=== PATIENT | male | born 1965 | race Two or more races ===

== ENCOUNTER 2021-03-10 19:34 | Inpatient (IN) | payer OTHER ==
[~2021-03-10] VITALS: Ht 182.9 cm; Wt 92.8 kg
[2021-03-10] MEDS ORDERED: methylPREDNISolone SOD SUCC 125 MG/2 ML VL IV ONE (19:45)
[2021-03-10] MEDS ORDERED: LABETALOL HCL 5 MG/ML 4ML SYRINGE IV ONE (19:45)
[2021-03-10 20:19] LABS: Basophils # (auto) 0 10 ^3/uL (0-0.2); Basophils % (auto) 0.3 % (0.0-2.0); Eosinophils # (auto) 0 10 ^3/uL (0-0.8); Hematocrit 44.1 % (41.0-53.0); Hemoglobin 15.3 g/dL (13.5-17.5); Lymphocytes # (auto) 1.1 10 ^3/uL (0.4-5.4); Lymphocytes % (auto) 9.3 % (10.0-50.0); Mean Corpuscular Hemoglobin 29.6 pg (28.0-32.0); Mean Corpuscular Hgb Conc. 34.6 g/dL (32.0-36.0); Mean Corpuscular Volume 85.4 fL (80.0-100.0); Monocytes # (auto) 0.7 10 ^3/uL (0-1.3); Monocytes % (auto) 5.6 % (0.0-12.0); Neutrophils # (auto) 10.3 10 ^3/uL (1.6-8.6); Neutrophils % (auto) 84.8 % (37.0-80.0); Nucleated Red Blood Cells % 0.1 %; Red Blood Cells 5.16 10^6/uL (4.5-5.90); Red Cell Distribution Width 14.4 % (11.8-14.3); White Blood Cell 12.2 10^3/uL (4.4-10.8)
[2021-03-10 20:40] LABS: Alanine Aminotransferase 26 U/L (16-61); Albumin 4.4 g/dL (3.4-5.0); Anion Gap 13 (5-15); Aspartate Aminotransferase 23 U/L (15-37); Blood Urea Nitrogen 12 mg/dL (7-18); CRP High Sensitivity 0.89 mg/dL (< 0.3); Calcium 9.9 mg/dL (8.5-10.1); Carbon Dioxide 22 mmol/L (21-32); Chloride 99 mmol/L (98-107); Glucose 151 mg/dL (74-106); Magnesium 2.3 mg/dL (1.6-2.6); Potassium 3.4 mmol/L (3.5-5.1); Sodium 134 mmol/L (136-145)
[2021-03-10 20:45] LABS: Alkaline Phosphatase 78 U/L (45-117); BUN/Creatinine Ratio 11.9; Bilirubin, Total 0.7 mg/dL (0.2-1.0); GFR African American 98 mL/min; GFR Non-African American 81 mL/min; Total Protein 9.6 g/dL (6.4-8.2)
[2021-03-10] MEDS ORDERED: cloNIDine HCL 0.1 MG TAB PO PRN (21:45)
[2021-03-10] MEDS ORDERED: MORPHINE SULFATE INJECTION 2 MG/ML SYRG IV PRN (21:45)
[2021-03-10] MEDS ORDERED: ONDANSETRON HCL 4 MG/2 ML VIAL IV PRN (21:45)
[2021-03-10] MEDS ORDERED: ACETAMINOPHEN 325 MG TAB PO PRN (21:45)
[2021-03-10] MEDS ORDERED: NITROGLYCERIN 0.4 MG SL TAB SL PRN (21:45)
[2021-03-10] MEDS ORDERED: ALBUTEROL SULF 2.5 MG/0.5ML(0.5%) NEB SOLN NEB PRN (21:45)
[2021-03-10] MEDS ORDERED: hydrALAZINE HCL 20 MG/ML VL IV ONE (21:45)
[2021-03-10] MEDS ORDERED: TEMAZEPAM 15 MG CAP PO PRN (21:45)
[2021-03-10] MEDS: FAMOTIDINE 20 MG TAB PO SCH (21:58)
[2021-03-10] MEDS ORDERED: IOHEXOL 350 MG/ML 100ML IJ ONE (21:59)
[2021-03-10] MEDS ORDERED: dilTIAZem 25 MG/5 ML VIAL IV ONE (23:30)
[2021-03-11] VITALS (7 sets, daily range): BP systolic 130–185; BP diastolic 80–120
[2021-03-11 01:02] LABS: Urine Bacteria NONE SEEN /hpf (None Seen); Urine Blood TRACE /uL (Negative); Urine Hyaline Cast FEW /lpf (0 - 2); Urine WBC 3 /hpf (0 - 3)
[2021-03-11 01:08] LABS: Urine Specific Gravity > 1.050 (1.001-1.035)
[2021-03-11] MEDS ORDERED: LABETALOL HCL 5 MG/ML 4ML SYRINGE IV ONE (01:15)
[2021-03-11] MEDS ORDERED: AML5T PO (05:00)
[2021-03-11] MEDS: cloNIDine HCL 0.1 MG TAB PO PRN ×3 (05:16→17:52)
[2021-03-11] MEDS ORDERED: cloNIDine HCL 0.1 MG TAB ONE (05:20)
[2021-03-11 08:34] LABS: Basophils # (auto) 0.1 10 ^3/uL (0-0.2); Basophils % (auto) 0.5 % (0.0-2.0); Eosinophils # (auto) 0 10 ^3/uL (0-0.8); Hematocrit 42.1 % (41.0-53.0); Hemoglobin 14.5 g/dL (13.5-17.5); Lymphocytes # (auto) 1.3 10 ^3/uL (0.4-5.4); Lymphocytes % (auto) 9.6 % (10.0-50.0); Mean Corpuscular Hemoglobin 29.5 pg (28.0-32.0); Mean Corpuscular Hgb Conc. 34.4 g/dL (32.0-36.0); Mean Corpuscular Volume 85.6 fL (80.0-100.0); Monocytes % (auto) 7.9 % (0.0-12.0); Neutrophils # (auto) 10.6 10 ^3/uL (1.6-8.6); Red Blood Cells 4.92 10^6/uL (4.5-5.90); Red Cell Distribution Width 14.2 % (11.8-14.3)
[2021-03-11 08:52] LABS: BUN/Creatinine Ratio 15.9; Calcium 9.5 mg/dL (8.5-10.1); Potassium 3.6 mmol/L (3.5-5.1)
[2021-03-11] MEDS: FAMOTIDINE 20 MG TAB PO SCH ×2 (10:05→22:00)
[2021-03-11] MEDS: amLODIPine BESYLATE 5 MG TAB PO SCH (10:05)
[2021-03-11] MEDS: ENOXAPARIN SOD 40 MG/0.4 ML SYRINGE SC SCH (10:05)
[2021-03-11] MEDS ORDERED: LISINOPRIL 20 MG TAB PO ONE (12:00)
[2021-03-11 12:36] LABS: Cholesterol 244 mg/dL (< 200); HDL Cholesterol 45 mg/dL (40-59); LDL Cholesterol 177 mg/dL (< 100); Triglycerides 111 mg/dL (< 150)
[2021-03-11 12:57] LABS: Alcohol, Urine < 3.0 mg/dL (0-10); Amphetamine Screen, Urine NEGATIVE (NEGATIVE); Barbiturate Scree,Urine NEGATIVE (NEGATIVE); Benzodiazephine Screen, Urine NEGATIVE (NEGATIVE); Cannabinoid Screen, Urine POSITIVE (NEGATIVE); Cocaine Screen, Urine NEGATIVE (NEGATIVE); Phencyclidine Screen, Urine NEGATIVE (NEGATIVE)
[2021-03-11 13:04] LABS: Opiate Scree,Urine NEGATIVE (NEGATIVE)
[2021-03-11] MEDS ORDERED: hydrALAZINE HCL 10 MG TAB PO ONE (14:00)
[2021-03-11] MEDS: hydrALAZINE HCL 10 MG TAB PO SCH (17:52)
[2021-03-11] MEDS: METOPROLOL TARTRATE 25 MG TAB PO SCH (22:00)
[2021-03-11] MEDS ORDERED: METOPROLOL TARTRATE 50 MG TAB PO SCH (22:00)
[2021-03-12 05:21] VITALS: BP 137/84
[2021-03-12] MEDS: hydrALAZINE HCL 10 MG TAB PO SCH ×3 (06:00→12:07)
[2021-03-12 08:32] VITALS: BP 136/90
[2021-03-12] MEDS: amLODIPine BESYLATE 5 MG TAB PO SCH (09:18)
[2021-03-12] MEDS: METOPROLOL TARTRATE 25 MG TAB PO SCH (09:18)
[2021-03-12] MEDS: FAMOTIDINE 20 MG TAB PO SCH (09:18)
[2021-03-12] MEDS: ENOXAPARIN SOD 40 MG/0.4 ML SYRINGE SC SCH (09:18)
[2021-03-12] MEDS ORDERED: NICOTINE 14 MG/24HR TOPICAL PATCH TD SCH (10:00)
[2021-03-12] MEDS ORDERED: LISINOPRIL 20 MG TAB PO SCH (10:00)
[2021-03-12 13:00] VITALS: BP 125/85
== END 2021-03-12 16:20 | disposition home or self-care (01) | DRG 199 ==
LOC: ER 19:34 → EDBD 19:34 → TELE-WESTW 21:44 → TELE 21:49 → UNDOADMIN 21:49 → TELE 23:29 → TELE-EAST 23:29
PROVIDERS: ADMIT Nurse Practitioner; ATTEND Family Medicine
DX: I16.1 Hypertensive emergency (principal); R65.11 Systemic inflammatory response syndrome (SIRS) of non-infectious origin with acute organ dysfunction; N17.9 Acute kidney failure, unspecified; N18.31 Chronic kidney disease, stage 3a; E78.5 Hyperlipidemia, unspecified; R06.03 Acute respiratory distress; F12.90 Cannabis use, unspecified, uncomplicated; E87.6 Hypokalemia; Z20.822 Contact with and (suspected) exposure to COVID-19; F17.210 Nicotine dependence, cigarettes, uncomplicated; I77.810 Thoracic aortic ectasia; Z82.3 Family history of stroke; Z82.49 Family history of ischemic heart disease and other diseases of the circulatory system; Z91.14 Patient's other noncompliance with medication regimen
CPT/HCPCS: 36415; 70450; 71045; 71275; 80048; 80053; 80061; 80307; 81001; 82728; 83605; 83735; 83880; 84484; 85025; 85379; 86141; 87040; 87426; 93005; 93306; 93970; 93975; 96374; 96375; 96376; G0378; J2405; J3490